=== PATIENT | male | born 1960 | race Caucasian/White ===

== ENCOUNTER 2017-08-06 18:04 | Emergency (ER) | payer BC, OTHER ==
[2017-08-06 18:44] VITALS: BP 141/100
[2017-08-06] MEDS ORDERED: HYDROmorphone 1 MG/ML Syringe IM ONE (19:49)
--- NOTE | 2017-08-06 20:00 | EDM.PDOC ---
ED HPI GENERAL MEDICAL PROBLEM - General Chief Complaint: Back Pain or Injury Stated Complaint: POSSIBLY A SLIPPED DISC Time Seen by Provider: 08/06/17 19:05 Source of Information: Reports: Patient History Limitations: Reports: No Limitations - History of Present Illness INITIAL COMMENTS - FREE TEXT/NARRATIVE: Is a 56-year-old male. Over the last several days he began having increasing lower back pain and pain down his left thigh. Apparently back in 2010 2011 he had back surgery with a pretty cage in his back lower lumbar area due to similar symptoms. He denies any trauma over the last few days but these symptoms have progressively gotten worse. Now he has this throbbing intense pain that goes from his lower back down into his left thigh mostly anterior but not into his lower leg or foot. He comes to the ER for evaluation. He is already seen Dr. Ojeda who is scheduled for MRI of his lower back next . He has been on some tramadol and a muscle relaxer but they don't seem to be helping him much. He comes to the ER because he wants help. Patient has RE taking 20 mg of prednisone daily due to rheumatoid arthritis. Left Lower Back Pain Score (Numeric/FACES): 10 - Related Data Allergies Allergy/AdvReac Type Severity Reaction Status Date / Time No Known Allergies Allergy Verified 08/06/17 18:48 Home Meds: Home Meds predniSONE [Prednisone] 10 mg PO DAILY #30 tab.ds.pk 07/19/15 [Rx] Adalimumab [Humira] 20 mg SQ ASDIRECTED 08/06/17 [History] Folic Acid 2 mg PO DAILY 08/06/17 [History] Levothyroxine [Synthroid] 88 mcg PO ACBREAKFAST 08/06/17 [History] Methotrexate 2.5 mg PO ASDIRECTED 08/06/17 [History] Orphenadrine [Norflex] 100 mg PO BID PRN 08/06/17 [History] Sertraline [Zoloft] 100 mg PO DAILY 08/06/17 [History] oxyCODONE HCl/Acetaminophen [Percocet 5-325 mg Tablet] 1 each PO Q6H PRN #12 tablet 08/06/17 [Rx] traMADol HCl [Tramadol HCl] 50 mg PO Q6H PRN 08/06/17 [History] Past Medical History Musculoskeletal History: Reports: Back Pain, Chronic Psychiatric History: Reports: Depression Endocrine/Metabolic History: Reports: Hypothyroidism - Past Surgical History Musculoskeletal Surgical History: Reports: Other (See Below) Other Musculoskeletal Surgeries/Procedures:: back surgery Social & Family History - Tobacco Use Smoking Status *Q: Never Smoker - Alcohol Use Days Per Week of Alcohol Use: 7 Number of Drinks Per Day: 2 Total Drinks Per Week: 14 - Recreational Drug Use Recreational Drug Use: No ED ROS GENERAL - Review of Systems Review Of Systems: See Below Constitutional: Denies: Fever, Chills HEENT: Reports: No Symptoms Respiratory: Reports: No Symptoms Cardiovascular: Reports: No Symptoms Endocrine: Reports: No Symptoms GI/Abdominal: Reports: No Symptoms Musculoskeletal: Reports: Back Pain, Other (As per history of present illness) Skin: Reports: No Symptoms Neurological: Reports: Other (Sciatica) Psychiatric: Reports: No Symptoms Hematologic/Lymphatic: Reports: No Symptoms ED EXAM,LOWER BACK PAIN/INJURY - Physical Exam Exam: See Below Exam Limited By: No Limitations General Appearance: Alert, WD/WN, Moderate Distress Eye Exam: Bilateral Eye: Normal Inspection Ears: Normal External Exam Nose: Normal Inspection Throat/Mouth: Normal Inspection, Normal Lips, Normal Voice, No Airway Compromise Head: Normocephalic Neck: Supple Respiratory/Chest: No Respiratory Distress Back Exam: Other (He has tenderness in the left lower back area and especially the left SI joint region, this pain seems to follow the L4-L5 dermatome that wraps around anteriorly in the thigh, there is no pain past his knee and no numbness or tingling noted. He denies any pain down his right leg.) Extremities: Normal Inspection Neurological: Alert, Oriented x 3 Psychiatric: Normal Affect, Normal Mood Skin Exam: Warm, Dry Course - Vital Signs Last Recorded V/S: Last Vital Signs Temp 96.7 F 08/06/17 18:38 Pulse 83 08/06/17 18:38 Resp 16 08/06/17 18:38 BP 141/100 H 08/06/17 18:38 Pulse Ox 96 08/06/17 18:38 - Orders/Labs/Meds Meds: Medications Discontinued Medications Generic Name Dose Route Start Last Admin Trade Name Freq PRN Reason Stop Dose Admin Hydromorphone HCl 1 mg 08/06/17 19:49 08/06/17 20:06 Dilaudid IM 08/06/17 19:50 1 mg ONETIME ONE Administration Departure - Departure Time of Disposition: 19:54 Disposition: Home, Self-Care 01 Condition: Fair Clinical Impression: Sciatica of left side, Disorder of left sacroiliac joint Acute lumbar myofascial strain Qualifiers: Encounter type: initial encounter Qualified Code(s): S39.012A - Strain of muscle, fascia and tendon of lower back, initial encounter - Discharge Information Prescriptions: oxyCODONE HCl/Acetaminophen [Percocet 5-325 mg Tablet] 1 each PO Q6H PRN #12 tablet PRN Reason: Pain Referrals: PCP,None [Primary Care Provider] - Forms: ED Department Discharge Additional Instructions: Ice to the lower back and left SI joint, take the medicine as needed for pain, try to find the most comfortable position and stay and it, make sure you follow up with Dr. Ojeda on Wednesday for reevaluation and further pain control, return to the ER as needed
== END 2017-08-06 20:27 | disposition home or self-care (01) ==
LOC: JD.ED 18:04
DX: S39.012A Strain of muscle, fascia and tendon of lower back, initial encounter (principal); M54.42 Lumbago with sciatica, left side; M53.3 Sacrococcygeal disorders, not elsewhere classified; E03.9 Hypothyroidism, unspecified; F32.9 Major depressive disorder, single episode, unspecified; Z79.899 Other long term (current) drug therapy; X58.XXXA Exposure to other specified factors, initial encounter
CPT/HCPCS: 96372; 99283; J1170